=== PATIENT | female | born 1975 | race Caucasian/White ===

== ENCOUNTER 2021-12-10 19:54 | Emergency (ER) | payer MEDICARE ==
[~2021-12-10] VITALS: Ht 165.1 cm; Wt 63.5 kg
--- NOTE | 2021-12-10 20:08 | NUR ---
BIBS C/O L SIDED CHEST PAIN WITH SOB [id number] [employer]. "FEELING MORE STRESSED THEN USUAL". PT A/OX4. TOLERATING R/A WELL WITH NO SOB. CONNECTED PT TO POX AND MONITOR. PT AMBULTAORY WITH STEADY GAIT.
--- NOTE | 2021-12-10 20:21 | NUR ---
IV RAC #20G S/L. BLOOD COLLECTED AND SENT TO LAB
--- NOTE | 2021-12-10 20:22 | NUR ---
HEEL GUMMER AT PT'S BEDSIDE
[2021-12-10 20:27] LABS: BASOPHILS % (AUTO) 0.9 % (0.0-2.0); EOSINOPHILS % (AUTO) 3.2 % (0.0-6.0); HEMATOCRIT 30 % (33-45); LYMPHOCYTES # (AUTO) 1.3 K/uL (0.8-4.8); LYMPHOCYTES % (AUTO) 22.7 % (20.0-44.0); MEAN CORPUSCULAR HGB CONC 33 g/dl (31.0-36.0); MEAN CORPUSCULAR VOLUME 89 fL (82-100); MONOCYTES # (AUTO) 0.6 K/uL (0.1-1.30); NEUTROPHILS # (AUTO) 3.5 K/uL (1.8-8.9); NEUTROPHILS % (AUTO) 63.2 % (43.0-81.0); PLATELET COUNT (AUTO) 268 K/uL (150-450); RED BLOOD CELL COUNT(AUTO) 3.36 MIL/uL (4.0-5.2); WHITE BLOOD COUNT (AUTO) 5.6 K/uL (4.3-11.0)
[2021-12-10 20:33] LABS: CALCIUM, SERUM 8.5 mg/dL (8.5-10.1); CARBON DIOXIDE 29 mmol/L (21-32); CHLORIDE 102 mmol/L (98-107); GLUCOSE 84 mg/dL (74-106); POTASSIUM 3.8 mmol/L (3.5-5.1); SODIUM SERUM 135 mmol/L (136-145); UREA NITROGEN, BLOOD 22 mg/dL (7-18)
[2021-12-10] MEDS ORDERED: KETOROLAC TROMETHAMINE 15 MG/ML VIAL ONE (21:58)
[2021-12-10] MEDS: KETOROLAC TROMETHAMINE INJ 30 MG/ML VIAL IV ONE (22:02)
--- NOTE | 2021-12-10 22:20 | NUR ---
MILL TENDER AT PT'S BEDSIDE
--- NOTE | 2021-12-10 23:35 | NUR ---
Patient discharged to home in stable condition. Written and verbal after care instructions given. Patient verbalizes understanding of instruction. PT ambulatory with a steady gait
--- NOTE | 2021-12-10 23:35 | NUR ---
IV removed. Catheter intact and site benign. Pressure and 4x4 applied to site. No bleeding noted.
[2021-12-10 23:41] VITALS: BP 121/84
== END 2021-12-10 23:41 | disposition home or self-care (01) ==
LOC: ER 20:05
DX: R07.89 Other chest pain (principal); Z60.2 Problems related to living alone
CPT/HCPCS: 36415; 71045; 80048; 83880; 84484 ×2; 85025; 93005 ×2; 96374; 99285; J1885